=== PATIENT | male | born 1970 | race Hispanic/Latino ===

== ENCOUNTER → 2016-09-26 | Outpatient (CLI) | payer BC ==
--- NOTE | 2016-09-26 14:51 | US ---
EXAM DESCRIPTION: Soft Tissue,Abdomen CLINICAL HISTORY: 46 years, Male, SKIN MASS possibility linear lump on right upper quadrant abdomen for three months nontender COMPARISON: None. TECHNIQUE: Multiple sonographic images obtained of the superficial tissues of the right upper abdomen FINDINGS: No cyst or mass seen. There is a small echogenic foci nonshadowing seen in the area of interest about 2 mm in size. IMPRESSION: Small nonspecific echogenic foci at the dermal subcutaneous junction in the area of interest measuring about 2 mm. If anything this could be a small foreign body. Electronically signed by: Amol Norman MD 09/26/2016 2:50 PM CDT
== END | disposition home or self-care (01) ==
LOC: US 10:11
PROVIDERS: ATTEND Family Medicine
DX: R22.2 Localized swelling, mass and lump, trunk (principal)

== ENCOUNTER → 2018-01-31 | Outpatient (CLI) | payer BC | LOC: GMAE 14:37 | PROVIDERS: ATTEND Family Medicine | DX: Z00.00 Encounter for general adult medical examination without abnormal findings (principal) ==

== ENCOUNTER → 2018-03-05 | Outpatient (CLI) | payer BC ==
--- NOTE | 2018-03-05 12:09 | US ---
EXAM DESCRIPTION: Liver ultrasound examination right upper quadrant CLINICAL HISTORY: R94.5 COMPARISON: None Available. TECHNIQUE: Right upper quadrant ultrasound FINDINGS: Pancreas: Visualized portions of the pancreas are unremarkable. Bowel gas obscures some areas. Aorta/inferior vena cava: No aortic aneurysm. Normal inferior vena cava. Liver: The liver is homogeneous in texture with mildly increased echogenicity suggesting diffuse hepatic steatosis. No focal liver lesion or intrahepatic bile duct dilatation. No liver surface irregularity. Normal appearance of the portal vein and hepatic veins. Gallbladder: Gallbladder appears normal with no intraluminal stones or wall thickening. Common bile duct: Prominent caliber measuring 5.9 mm. No intraductal stone is seen. Right kidney: Renal length is 11.0 cm. Normal cortical echogenicity. Cortical thickness is normal. No hydronephrosis is seen. No renal mass or shadowing calculus. IMPRESSION: No diagnostic abnormality is identified on sonographic examination of the right upper quadrant. Electronically signed by: Ari Heller MD 03/05/2018 12:07 PM CDT
== END ==
LOC: US 08:08
PROVIDERS: ATTEND Family Medicine
DX: R94.5 Abnormal results of liver function studies (principal)